=== PATIENT | male | born 1970 | race Two or more races ===

== ENCOUNTER 2018-03-27 10:25 | Emergency (ER) | payer MEDICAID ==
[~2018-03-27] VITALS: Ht 175.3 cm; Wt 99.8 kg
[~2018-03-27 10:25] MED LIST: ASPI81CH43 PO; ATOR20TA50 PO; CAR3125T PO; ENA2.5T PO; GLIP-115 PO; METF-371 PO
[2018-03-27] MEDS ORDERED: SODIUM CHLORIDE 0.9% 1,000 ML IV ONE (11:12)
[2018-03-27] MEDS ORDERED: InsuLIN REG 1unit/0.01ml Soln (100units/ml) IV ONE (11:15)
[2018-03-27] MEDS ORDERED: LORazepam 2MG/ML-1ML VIAL IV ONE (11:15)
[2018-03-27 11:39] LABS: Basophils # (auto) 0 uL; Basophils % (auto) 0.5 % (0.0-2.0); Eosinophils # (auto) 0.1 uL; Eosinophils % (auto) 0.7 % (0.0-7.0); Hematocrit 48.8 % (41.0-53.0); Hemoglobin 16.7 g/dL (13.5-17.5); Lymphocytes # (auto) 3.6 uL; Lymphocytes % (auto) 38.2 % (10.0-50.0); Mean Corpuscular Hgb Conc. 34.2 g/dL (32.0-36.0); Mean Corpuscular Volume 90.6 fL (80.0-100.0); Monocytes # (auto) 0.6 uL; Monocytes % (auto) 6.5 % (0.0-12.0); Neutrophils % (auto) 54.1 % (37.0-80.0); Nucleated Red Blood Cells % 0.1 %; Platelet Count (auto) 229 10^3/uL (140-450); Red Blood Cells 5.38 10^6/uL (4.5-5.90); Red Cell Distribution Width 12.6 % (11.8-14.3); White Blood Cell 9.3 10^3/uL (4.4-10.8)
[2018-03-27 11:48] LABS: Albumin 3.6 g/dL (3.4-5.0); Calcium 9.2 mg/dL (8.5-10.1); Potassium 4.3 mmol/L (3.5-5.1)
[2018-03-27 11:51] LABS: Bilirubin, Total 0.4 mg/dL (0.2-1.0); Total Protein 7.6 g/dL (6.4-8.2)
[2018-03-27 11:52] LABS: Urine Bacteria NONE SEEN /hpf (None Seen); Urine Blood Negative /uL (Negative); Urine Specific Gravity 1.033 (1.001-1.035); Urine WBC <1 /hpf (0 - 3)
[2018-03-27 12:15] LABS: BUN/Creatinine Ratio 18.4
[2018-03-27 12:49] VITALS: BP 119/85
== END 2018-03-27 13:00 | disposition home or self-care (01) ==
LOC: ER 10:25
DX: E11.65 Type 2 diabetes mellitus with hyperglycemia (principal); K40.90 Unilateral inguinal hernia, without obstruction or gangrene, not specified as recurrent; I10 Essential (primary) hypertension; M79.662 Pain in left lower leg; M79.661 Pain in right lower leg; F17.200 Nicotine dependence, unspecified, uncomplicated; F41.9 Anxiety disorder, unspecified; F32.9 Major depressive disorder, single episode, unspecified; Z79.82 Long term (current) use of aspirin; Z79.4 Long term (current) use of insulin
CPT/HCPCS: 36415; 74176; 80053; 81001; 85025; 96361; 96374; 99284; J1815; J7030

== ENCOUNTER 2018-04-04 11:18 | Emergency (ER) | payer MEDICAID ==
[~2018-04-04] VITALS: Ht 175.3 cm; Wt 101.6 kg
[2018-04-04 11:46] LABS: Urine WBC None Seen /hpf (0 - 3)
[2018-04-04 11:58] LABS: Basophils # (auto) 0.1 uL; Basophils % (auto) 0.6 % (0.0-2.0); Eosinophils # (auto) 0.1 uL; Eosinophils % (auto) 0.7 % (0.0-7.0); Hematocrit 48.9 % (41.0-53.0); Hemoglobin 16.9 g/dL (13.5-17.5); Lymphocytes # (auto) 2.3 uL; Lymphocytes % (auto) 28.8 % (10.0-50.0); Mean Corpuscular Hemoglobin 31.1 pg (28.0-32.0); Mean Corpuscular Hgb Conc. 34.6 g/dL (32.0-36.0); Mean Corpuscular Volume 89.9 fL (80.0-100.0); Monocytes # (auto) 0.5 uL; Monocytes % (auto) 5.7 % (0.0-12.0); Neutrophils # (auto) 5.2 uL; Neutrophils % (auto) 64.2 % (37.0-80.0); Nucleated Red Blood Cells % 0.2 %; Platelet Count (auto) 244 10^3/uL (140-450); Red Blood Cells 5.43 10^6/uL (4.5-5.90); Red Cell Distribution Width 12.9 % (11.8-14.3); White Blood Cell 8.1 10^3/uL (4.4-10.8)
[2018-04-04 12:09] LABS: Urine Bacteria NONE SEEN /hpf (None Seen); Urine Blood Negative /uL (Negative); Urine Specific Gravity 1.029 (1.001-1.035)
[2018-04-04 12:25] LABS: Alanine Aminotransferase 49 U/L (16-61); Albumin 3.7 g/dL (3.4-5.0); Anion Gap 10 (5-15); Aspartate Aminotransferase 18 U/L (15-37); BUN/Creatinine Ratio 14.8; Blood Urea Nitrogen 12 mg/dL (7-18); Calcium 8.7 mg/dL (8.5-10.1); Carbon Dioxide 22 mmol/L (21-32); Chloride 101 mmol/L (98-107); GFR African American 130 mL/min; GFR Non-African American 108 mL/min; Glucose 387 mg/dL (74-106); Potassium 4.1 mmol/L (3.5-5.1); Sodium 133 mmol/L (136-145)
[2018-04-04 12:30] LABS: Alkaline Phosphatase 141 U/L (45-117); Bilirubin, Total 0.6 mg/dL (0.2-1.0); Total Protein 7.7 g/dL (6.4-8.2)
[2018-04-04] MEDS ORDERED: ONDANSETRON ODT 4 MG TAB PO ONE (14:15)
[2018-04-04] MEDS ORDERED: InsuLIN REG 1unit/0.01ml Soln (100units/ml) SC ONE (15:15)
[2018-04-04 15:30] VITALS: BP 110/72
== END 2018-04-04 16:49 | disposition home or self-care (01) ==
LOC: ER 11:21
DX: E11.65 Type 2 diabetes mellitus with hyperglycemia (principal); R11.0 Nausea; I10 Essential (primary) hypertension; F17.210 Nicotine dependence, cigarettes, uncomplicated; Z79.82 Long term (current) use of aspirin; Z79.84 Long term (current) use of oral hypoglycemic drugs
CPT/HCPCS: 36415; 80053; 81001; 82962; 84484; 85025; 93005; 96372; 99284; J1815; Q0162

== ENCOUNTER 2020-05-19 18:32 | Inpatient (IN) | payer MEDICAID ==
[~2020-05-19] VITALS: Ht 175.3 cm; Wt 97.4 kg
[~2020-05-19 18:32] MED LIST changes: -ENA2.5T PO; +ENAL2.5T11 PO; -GLIP-115 PO; +GLIP5TAB12 PO
[2020-05-19] MEDS ORDERED: AZITHROMYCIN 500MG/ 250ML 250 ML IV ONE (19:00)
[2020-05-19] MEDS ORDERED: ONDANSETRON HCL 4 MG/2 ML VIAL IV ONE (19:00)
[2020-05-19] MEDS ORDERED: SODIUM CHLORIDE 0.9% 3,000 ML IV ONE (19:00)
[2020-05-19] MEDS ORDERED: ACETAMINOPHEN 325 MG TAB PO ONE (19:00)
[2020-05-19] MEDS ORDERED: CEFEPIME 2 GM in SODIUM CHL 0.9% 50 ML IV ONE (19:00)
[2020-05-19] MEDS ORDERED: MORPHINE SULFATE 4 MG/ML SYR/VIAL IV ONE (19:00)
[2020-05-19] MEDS ORDERED: SODIUM CHLORIDE 0.9% 1,000 ML IVB ONE (19:00)
[2020-05-19] MEDS ORDERED: IOHEXOL 300 MG/ML 100ML BOTTLE IJ ONE (21:18)
[2020-05-19 23:09] LABS: Basophils # (auto) 0 10 ^3/uL (0-0.2); Basophils % (auto) 0.2 % (0.0-2.0); Eosinophils # (auto) 0 10 ^3/uL (0-0.8); Hematocrit 46.7 % (41.0-53.0); Hemoglobin 16.3 g/dL (13.5-17.5); Lymphocytes # (auto) 1.2 10 ^3/uL (0.4-5.4); Lymphocytes % (auto) 20.5 % (10.0-50.0); Mean Corpuscular Hemoglobin 30.6 pg (28.0-32.0); Mean Corpuscular Hgb Conc. 34.8 g/dL (32.0-36.0); Monocytes # (auto) 0.4 10 ^3/uL (0-1.3); Monocytes % (auto) 6.5 % (0.0-12.0); Neutrophils # (auto) 4.3 10 ^3/uL (1.6-8.6); Neutrophils % (auto) 72.8 % (37.0-80.0); Red Blood Cells 5.31 10^6/uL (4.5-5.90); Red Cell Distribution Width 12.7 % (11.8-14.3)
[2020-05-19 23:24] LABS: Partial Thromboplastin Time 28.2 sec (23.0-31.2)
[2020-05-19 23:27] LABS: Albumin 2.7 g/dL (3.4-5.0); Magnesium 1.9 mg/dL (1.6-2.6); Potassium 3.3 mmol/L (3.5-5.1)
[2020-05-19 23:30] LABS: BUN/Creatinine Ratio 8.8; Bilirubin, Total 0.6 mg/dL (0.2-1.0); Total Protein 7.4 g/dL (6.4-8.2)
[2020-05-20 01:39] LABS: Urine Bacteria FEW /hpf (None Seen); Urine Blood Negative /uL (Negative); Urine Specific Gravity 1.031 (1.001-1.035); Urine WBC 1 /hpf (0 - 3)
[2020-05-20] MEDS ORDERED: ACETAMINOPHEN 325 MG TAB PO ONE (04:00)
[2020-05-20] MEDS ORDERED: ONDANSETRON HCL 4 MG/2 ML VIAL IV PRN (04:00)
[2020-05-20] MEDS ORDERED: REMDESIVIR PER PHARMACY 0 ML IV SCH ×2 (04:00→04:30)
[2020-05-20] MEDS ORDERED: DexAMETHasone SOD PHOS 10MG/1ML VIAL INJ IV SCH (04:00)
[2020-05-20] MEDS ORDERED: MORPHINE SULFATE INJECTION 2 MG/ML SYRG IV PRN (04:00)
[2020-05-20] MEDS: DexAMETHasone SOD PHOS 10MG/1ML VIAL INJ IV SCH (04:53)
[2020-05-20] MEDS: ACETAMINOPHEN 325 MG TAB PO PRN ×2 (04:53→23:48)
[2020-05-20] MEDS: MORPHINE SULFATE INJECTION 2 MG/ML SYRG IV PRN ×2 (04:56→23:47)
[2020-05-20] MEDS ORDERED: ZINC SULFATE 220mg CAP or TAB PO SCH (10:00)
[2020-05-20] MEDS ORDERED: ASCORBIC ACID 500 MG TAB PO SCH (10:00)
[2020-05-20] MEDS: ENOXAPARIN SOD 40 MG/0.4 ML SYRINGE SC SCH (10:00)
[2020-05-20] MEDS ORDERED: CHOLECALCIFEROL (VITD3) 2,000 UNIT CAP/TAB PO SCH (10:00)
[2020-05-20] MEDS: CHOLECALCIFEROL (VITD3) 2,000 UNIT CAP/TAB PO SCH (10:23)
[2020-05-20] MEDS: ZINC SULFATE 220mg CAP or TAB PO SCH (10:23)
[2020-05-20] MEDS: ASCORBIC ACID 500 MG TAB PO SCH (10:23)
[2020-05-20] MEDS ORDERED: POTASSIUM CHL 20 Meq TABLET PO ONE (12:30)
[2020-05-20] MEDS ORDERED: REMDESIVIR 200 MG in NS 210ml LOADING DOSE ADULT IV ONE (15:00)
[2020-05-20] MEDS ORDERED: DULO60CA PO (17:32)
[2020-05-20] MEDS ORDERED: HYDR-531 PO ×2 (17:40→17:45)
[2020-05-20] MEDS ORDERED: GABA100C9 PO (17:44)
[2020-05-20] MEDS ORDERED: DULO1CAP6 PO (17:45)
[2020-05-20] MEDS ORDERED: METF-371 PO (17:45)
[2020-05-20] MEDS ORDERED: GABA300C10 PO (17:46)
[2020-05-20] MEDS: FAMOTIDINE (10MG/ML) 2ML VL IV SCH (22:00)
[2020-05-20] MEDS: ONDANSETRON HCL 4 MG/2 ML VIAL IV PRN (23:47)
[2020-05-21 00:45] VITALS: BP 125/87
[2020-05-21] MEDS ORDERED: DEXTROSE (50%) 50ML SYRG IV PRN (02:30)
[2020-05-21] MEDS ORDERED: LORA1TAB23 PO (04:57)
[2020-05-21] MEDS: InsuLIN REG 1unit/0.01ml Soln (100units/ml) SC SCH ×4 (06:23→22:26)
[2020-05-21] MEDS: ACCU-CHEK COMFORT CURVE STRIP VI SCH ×4 (06:23→22:27)
[2020-05-21 06:44] LABS: Basophils # (auto) 0 10 ^3/uL (0-0.2); Basophils % (auto) 0.3 % (0.0-2.0); Eosinophils # (auto) 0 10 ^3/uL (0-0.8); Hematocrit 50.8 % (41.0-53.0); Hemoglobin 17.6 g/dL (13.5-17.5); Lymphocytes # (auto) 1.1 10 ^3/uL (0.4-5.4); Lymphocytes % (auto) 12.1 % (10.0-50.0); Mean Corpuscular Hemoglobin 31.2 pg (28.0-32.0); Mean Corpuscular Hgb Conc. 34.8 g/dL (32.0-36.0); Mean Corpuscular Volume 89.9 fL (80.0-100.0); Monocytes # (auto) 0.5 10 ^3/uL (0-1.3); Monocytes % (auto) 6.2 % (0.0-12.0); Neutrophils # (auto) 7.1 10 ^3/uL (1.6-8.6); Neutrophils % (auto) 81.4 % (37.0-80.0); Nucleated Red Blood Cells % 0.1 %; Red Blood Cells 5.65 10^6/uL (4.5-5.90); Red Cell Distribution Width 12.8 % (11.8-14.3); White Blood Cell 8.8 10^3/uL (4.4-10.8)
[2020-05-21 07:04] LABS: Potassium 4.4 mmol/L (3.5-5.1)
[2020-05-21 07:28] LABS: Albumin 2.4 g/dL (3.4-5.0); BUN/Creatinine Ratio 14.1; Bilirubin, Total 0.7 mg/dL (0.2-1.0); CRP High Sensitivity 15.3 mg/dL (< 0.3); Calcium 8.5 mg/dL (8.5-10.1); Magnesium 2.1 mg/dL (1.6-2.6); Total Protein 7.7 g/dL (6.4-8.2)
[2020-05-21 08:00] VITALS: BP 107/65
[2020-05-21] MEDS: ENOXAPARIN SOD 40 MG/0.4 ML SYRINGE SC SCH (09:42)
[2020-05-21] MEDS: ZINC SULFATE 220mg CAP or TAB PO SCH (09:42)
[2020-05-21] MEDS: ASCORBIC ACID 500 MG TAB PO SCH (09:42)
[2020-05-21] MEDS: CHOLECALCIFEROL (VITD3) 2,000 UNIT CAP/TAB PO SCH (09:43)
[2020-05-21] MEDS: ONDANSETRON HCL 4 MG/2 ML VIAL IV PRN (09:43)
[2020-05-21] MEDS: FAMOTIDINE (10MG/ML) 2ML VL IV SCH ×2 (09:43→22:25)
[2020-05-21] MEDS: DexAMETHasone SOD PHOS 10MG/1ML VIAL INJ IV SCH (09:43)
[2020-05-21] MEDS: MORPHINE SULFATE INJECTION 2 MG/ML SYRG IV PRN (09:44)
[2020-05-21] MEDS: REMDESIVIR 100mg 100 MG in SODIUM CHL 0.9% 230 ML IV SCH (15:11)
[2020-05-21 16:00] VITALS: BP 112/74
[2020-05-22] VITALS (7 sets, daily range): BP systolic 93–122; BP diastolic 63–82
[2020-05-22] MEDS: ONDANSETRON HCL 4 MG/2 ML VIAL IV PRN (04:52)
[2020-05-22] MEDS: MORPHINE SULFATE INJECTION 2 MG/ML SYRG IV PRN (04:53)
[2020-05-22 06:12] LABS: Basophils # (auto) 0 10 ^3/uL (0-0.2); Basophils % (auto) 0.2 % (0.0-2.0); Eosinophils # (auto) 0 10 ^3/uL (0-0.8); Hematocrit 45.6 % (41.0-53.0); Hemoglobin 15.8 g/dL (13.5-17.5); Lymphocytes # (auto) 1.1 10 ^3/uL (0.4-5.4); Lymphocytes % (auto) 13.5 % (10.0-50.0); Mean Corpuscular Hemoglobin 30.7 pg (28.0-32.0); Mean Corpuscular Hgb Conc. 34.5 g/dL (32.0-36.0); Mean Corpuscular Volume 88.8 fL (80.0-100.0); Monocytes # (auto) 0.7 10 ^3/uL (0-1.3); Monocytes % (auto) 8.3 % (0.0-12.0); Neutrophils # (auto) 6.3 10 ^3/uL (1.6-8.6); Red Blood Cells 5.14 10^6/uL (4.5-5.90); Red Cell Distribution Width 12.6 % (11.8-14.3); White Blood Cell 8.1 10^3/uL (4.4-10.8)
[2020-05-22 06:28] LABS: Calcium 8.2 mg/dL (8.5-10.1); Potassium 4.1 mmol/L (3.5-5.1)
[2020-05-22] MEDS: ACCU-CHEK COMFORT CURVE STRIP VI SCH ×4 (06:35→21:29)
[2020-05-22] MEDS: InsuLIN REG 1unit/0.01ml Soln (100units/ml) SC SCH ×4 (06:38→21:36)
[2020-05-22 06:42] LABS: Albumin 2.2 g/dL (3.4-5.0); BUN/Creatinine Ratio 25.4; Bilirubin, Total 0.6 mg/dL (0.2-1.0); CRP High Sensitivity 12.3 mg/dL (< 0.3)
[2020-05-22] MEDS: ZINC SULFATE 220mg CAP or TAB PO SCH (08:41)
[2020-05-22] MEDS: DexAMETHasone SOD PHOS 10MG/1ML VIAL INJ IV SCH (08:41)
[2020-05-22] MEDS: CHOLECALCIFEROL (VITD3) 2,000 UNIT CAP/TAB PO SCH (08:41)
[2020-05-22] MEDS: ASCORBIC ACID 500 MG TAB PO SCH (08:41)
[2020-05-22] MEDS: ENOXAPARIN SOD 40 MG/0.4 ML SYRINGE SC SCH (08:42)
[2020-05-22] MEDS: FAMOTIDINE (10MG/ML) 2ML VL IV SCH ×2 (10:12→21:35)
[2020-05-22] MEDS: REMDESIVIR 100mg 100 MG in SODIUM CHL 0.9% 230 ML IV SCH (15:40)
[2020-05-23] VITALS: BP 92/59
[2020-05-23] MEDS: ONDANSETRON HCL 4 MG/2 ML VIAL IV PRN ×2 (04:29→07:56)
[2020-05-23] MEDS: MORPHINE SULFATE INJECTION 2 MG/ML SYRG IV PRN ×2 (04:29→21:38)
[2020-05-23] MEDS: ACCU-CHEK COMFORT CURVE STRIP VI SCH ×4 (07:06→22:00)
[2020-05-23] MEDS: InsuLIN REG 1unit/0.01ml Soln (100units/ml) SC SCH ×4 (07:06→22:00)
[2020-05-23 07:24] LABS: Basophils # (auto) 0 10 ^3/uL (0-0.2); Basophils % (auto) 0.1 % (0.0-2.0); Eosinophils # (auto) 0 10 ^3/uL (0-0.8); Eosinophils % (auto) 0.1 % (0.0-7.0); Hematocrit 42.7 % (41.0-53.0); Hemoglobin 14.9 g/dL (13.5-17.5); Lymphocytes # (auto) 1.7 10 ^3/uL (0.4-5.4); Lymphocytes % (auto) 19.9 % (10.0-50.0); Mean Corpuscular Hemoglobin 30.7 pg (28.0-32.0); Mean Corpuscular Hgb Conc. 34.9 g/dL (32.0-36.0); Monocytes # (auto) 0.9 10 ^3/uL (0-1.3); Neutrophils # (auto) 5.7 10 ^3/uL (1.6-8.6); Neutrophils % (auto) 68.9 % (37.0-80.0); Nucleated Red Blood Cells % 0.1 %; Red Blood Cells 4.85 10^6/uL (4.5-5.90); Red Cell Distribution Width 12.3 % (11.8-14.3); White Blood Cell 8.3 10^3/uL (4.4-10.8)
[2020-05-23 08:00] VITALS: BP 109/70
[2020-05-23 08:10] LABS: Albumin 2.1 g/dL (3.4-5.0); Potassium 3.9 mmol/L (3.5-5.1)
[2020-05-23 08:24] LABS: BUN/Creatinine Ratio 34.5; Bilirubin, Total 0.7 mg/dL (0.2-1.0); CRP High Sensitivity 6.12 mg/dL (< 0.3); Total Protein 6.4 g/dL (6.4-8.2)
[2020-05-23] MEDS: FAMOTIDINE (10MG/ML) 2ML VL IV SCH ×2 (09:12→21:37)
[2020-05-23] MEDS: ASCORBIC ACID 500 MG TAB PO SCH (09:12)
[2020-05-23] MEDS: DexAMETHasone SOD PHOS 10MG/1ML VIAL INJ IV SCH (09:12)
[2020-05-23] MEDS: CHOLECALCIFEROL (VITD3) 2,000 UNIT CAP/TAB PO SCH (09:12)
[2020-05-23] MEDS: ZINC SULFATE 220mg CAP or TAB PO SCH (09:12)
[2020-05-23] MEDS: ENOXAPARIN SOD 40 MG/0.4 ML SYRINGE SC SCH (09:13)
[2020-05-23] MEDS: REMDESIVIR 100mg 100 MG in SODIUM CHL 0.9% 230 ML IV SCH (14:40)
[2020-05-23 16:00] VITALS: BP 97/59
[2020-05-23 23:52] VITALS: BP 93/67
[2020-05-24] MEDS: ONDANSETRON HCL 4 MG/2 ML VIAL IV PRN ×2 (03:33→21:57)
[2020-05-24] MEDS: InsuLIN REG 1unit/0.01ml Soln (100units/ml) SC SCH ×4 (06:20→20:39)
[2020-05-24] MEDS: ACCU-CHEK COMFORT CURVE STRIP VI SCH ×4 (06:36→22:14)
[2020-05-24 08:00] VITALS: BP 108/67
[2020-05-24 08:00] LABS: Basophils # (auto) 0 10 ^3/uL (0-0.2); Basophils % (auto) 0.1 % (0.0-2.0); Eosinophils # (auto) 0 10 ^3/uL (0-0.8); Eosinophils % (auto) 0.4 % (0.0-7.0); Hematocrit 43.7 % (41.0-53.0); Lymphocytes # (auto) 1.8 10 ^3/uL (0.4-5.4); Lymphocytes % (auto) 24.8 % (10.0-50.0); Mean Corpuscular Hemoglobin 30.4 pg (28.0-32.0); Mean Corpuscular Hgb Conc. 34.3 g/dL (32.0-36.0); Mean Corpuscular Volume 88.7 fL (80.0-100.0); Monocytes # (auto) 0.8 10 ^3/uL (0-1.3); Monocytes % (auto) 10.8 % (0.0-12.0); Neutrophils # (auto) 4.6 10 ^3/uL (1.6-8.6); Neutrophils % (auto) 63.9 % (37.0-80.0); Red Blood Cells 4.92 10^6/uL (4.5-5.90); Red Cell Distribution Width 12.5 % (11.8-14.3); White Blood Cell 7.2 10^3/uL (4.4-10.8)
[2020-05-24 08:39] LABS: Albumin 2.2 g/dL (3.4-5.0); Anion Gap 8 (5-15); Blood Urea Nitrogen 17 mg/dL (7-18); Calcium 8.3 mg/dL (8.5-10.1); Carbon Dioxide 24 mmol/L (21-32); Chloride 102 mmol/L (98-107); GFR African American 248 mL/min; GFR Non-African American 205 mL/min; Glucose 237 mg/dL (74-106); Sodium 134 mmol/L (136-145)
[2020-05-24 08:44] LABS: Alanine Aminotransferase 34 U/L (16-61); Alkaline Phosphatase 106 U/L (45-117); Aspartate Aminotransferase 21 U/L (15-37); Bilirubin, Total 0.8 mg/dL (0.2-1.0); Total Protein 6.4 g/dL (6.4-8.2)
[2020-05-24] MEDS ORDERED: INSULIN LANTUS (GLARGINE) 1 /0.01ml (100units/ml) SC SCH (09:15)
[2020-05-24] MEDS: ZINC SULFATE 220mg CAP or TAB PO SCH (10:02)
[2020-05-24] MEDS: FAMOTIDINE (10MG/ML) 2ML VL IV SCH ×2 (10:02→22:07)
[2020-05-24] MEDS: DexAMETHasone SOD PHOS 10MG/1ML VIAL INJ IV SCH (10:02)
[2020-05-24] MEDS: ENOXAPARIN SOD 40 MG/0.4 ML SYRINGE SC SCH (10:03)
[2020-05-24] MEDS: ASCORBIC ACID 500 MG TAB PO SCH (10:03)
[2020-05-24] MEDS: CHOLECALCIFEROL (VITD3) 2,000 UNIT CAP/TAB PO SCH (10:04)
[2020-05-24 12:06] LABS: Potassium 3.8 mmol/L (3.5-5.1)
[2020-05-24] MEDS: REMDESIVIR 100mg 100 MG in SODIUM CHL 0.9% 230 ML IV SCH (14:28)
[2020-05-24 16:00] VITALS: BP 118/62
[2020-05-24] MEDS: MORPHINE SULFATE INJECTION 2 MG/ML SYRG IV PRN (21:26)
[2020-05-24] MEDS: INSULIN LANTUS (GLARGINE) 1 /0.01ml (100units/ml) SC SCH (22:13)
[2020-05-25] VITALS: BP 101/65
[2020-05-25] MEDS: InsuLIN REG 1unit/0.01ml Soln (100units/ml) SC SCH ×4 (06:38→21:44)
[2020-05-25] MEDS: ACCU-CHEK COMFORT CURVE STRIP VI SCH ×4 (06:38→22:00)
[2020-05-25 07:07] LABS: Basophils # (auto) 0 10 ^3/uL (0-0.2); Basophils % (auto) 0.2 % (0.0-2.0); Eosinophils # (auto) 0.1 10 ^3/uL (0-0.8); Eosinophils % (auto) 0.9 % (0.0-7.0); Hematocrit 42.8 % (41.0-53.0); Hemoglobin 14.8 g/dL (13.5-17.5); Lymphocytes % (auto) 29.2 % (10.0-50.0); Mean Corpuscular Hemoglobin 30.6 pg (28.0-32.0); Mean Corpuscular Hgb Conc. 34.7 g/dL (32.0-36.0); Mean Corpuscular Volume 88.3 fL (80.0-100.0); Monocytes # (auto) 0.7 10 ^3/uL (0-1.3); Monocytes % (auto) 10.2 % (0.0-12.0); Neutrophils % (auto) 59.5 % (37.0-80.0); Nucleated Red Blood Cells % 0.1 %; Red Blood Cells 4.85 10^6/uL (4.5-5.90); Red Cell Distribution Width 12.2 % (11.8-14.3); White Blood Cell 6.7 10^3/uL (4.4-10.8)
[2020-05-25 07:34] LABS: Potassium 3.8 mmol/L (3.5-5.1)
[2020-05-25 07:49] LABS: BUN/Creatinine Ratio 32.7; CRP High Sensitivity 1.98 mg/dL (< 0.3)
[2020-05-25 08:00] VITALS: BP 125/82
[2020-05-25] MEDS: CHOLECALCIFEROL (VITD3) 2,000 UNIT CAP/TAB PO SCH (10:50)
[2020-05-25] MEDS: FAMOTIDINE (10MG/ML) 2ML VL IV SCH ×2 (10:50→22:46)
[2020-05-25] MEDS: ENOXAPARIN SOD 40 MG/0.4 ML SYRINGE SC SCH (10:50)
[2020-05-25] MEDS: ASCORBIC ACID 500 MG TAB PO SCH (10:50)
[2020-05-25] MEDS: DexAMETHasone SOD PHOS 10MG/1ML VIAL INJ IV SCH (10:50)
[2020-05-25] MEDS: ZINC SULFATE 220mg CAP or TAB PO SCH (10:51)
[2020-05-25] MEDS: INSULIN LANTUS (GLARGINE) 1 /0.01ml (100units/ml) SC SCH ×2 (11:50→21:45)
[2020-05-25 16:00] VITALS: BP 99/78
[2020-05-25] MEDS: ACETAMINOPHEN 325 MG TAB PO PRN (19:24)
[2020-05-26] VITALS: BP_SYST 100; BP_SYST 112; BP_DIAS 58; BP_DIAS 60
[2020-05-26] MEDS ORDERED: LORazepam 0.5 MG TAB PO PRN (01:45)
[2020-05-26] MEDS: InsuLIN REG 1unit/0.01ml Soln (100units/ml) SC SCH ×3 (06:11→18:14)
[2020-05-26] MEDS: ACCU-CHEK COMFORT CURVE STRIP VI SCH ×3 (06:13→18:14)
[2020-05-26 06:38] LABS: Basophils # (auto) 0 10 ^3/uL (0-0.2); Basophils % (auto) 0.2 % (0.0-2.0); Eosinophils # (auto) 0.1 10 ^3/uL (0-0.8); Eosinophils % (auto) 0.6 % (0.0-7.0); Hematocrit 43.8 % (41.0-53.0); Hemoglobin 15.2 g/dL (13.5-17.5); Lymphocytes # (auto) 1.9 10 ^3/uL (0.4-5.4); Lymphocytes % (auto) 17.7 % (10.0-50.0); Mean Corpuscular Hemoglobin 30.8 pg (28.0-32.0); Mean Corpuscular Hgb Conc. 34.8 g/dL (32.0-36.0); Mean Corpuscular Volume 88.4 fL (80.0-100.0); Monocytes # (auto) 0.7 10 ^3/uL (0-1.3); Monocytes % (auto) 6.7 % (0.0-12.0); Neutrophils # (auto) 8.1 10 ^3/uL (1.6-8.6); Neutrophils % (auto) 74.8 % (37.0-80.0); Red Blood Cells 4.95 10^6/uL (4.5-5.90); Red Cell Distribution Width 12.7 % (11.8-14.3); White Blood Cell 10.8 10^3/uL (4.4-10.8)
[2020-05-26 06:56] LABS: Potassium 3.8 mmol/L (3.5-5.1)
[2020-05-26 07:12] LABS: BUN/Creatinine Ratio 21.1; CRP High Sensitivity 2.32 mg/dL (< 0.3); Calcium 7.8 mg/dL (8.5-10.1)
[2020-05-26] MEDS: INSULIN LANTUS (GLARGINE) 1 /0.01ml (100units/ml) SC SCH (07:54)
[2020-05-26 08:00] VITALS: BP 111/73
[2020-05-26] MEDS: DexAMETHasone SOD PHOS 10MG/1ML VIAL INJ IV SCH (10:02)
[2020-05-26] MEDS: FAMOTIDINE (10MG/ML) 2ML VL IV SCH (10:06)
[2020-05-26] MEDS: CHOLECALCIFEROL (VITD3) 2,000 UNIT CAP/TAB PO SCH (10:06)
[2020-05-26] MEDS: ENOXAPARIN SOD 40 MG/0.4 ML SYRINGE SC SCH (10:06)
[2020-05-26] MEDS: ASCORBIC ACID 500 MG TAB PO SCH (10:06)
[2020-05-26] MEDS: ZINC SULFATE 220mg CAP or TAB PO SCH (10:06)
[2020-05-26 16:00] VITALS: BP 105/71
== END 2020-05-26 18:30 | disposition home or self-care (01) | DRG 137 ==
LOC: ER 18:32 → EDBD 18:32 → TELE 18:33 → TELE-WESTW 05-20 23:31
PROVIDERS: ADMIT Internal Medicine; ATTEND Internal Medicine
PROC: XW033E5 Introduction of Remdesivir Anti-infective into Peripheral Vein, Percutaneous Approach, New Technology Group 5 (ICD-10-PCS; principal; 2020-05-21)
DX: U07.1 COVID-19 (principal); J96.01 Acute respiratory failure with hypoxia; J12.82 Pneumonia due to coronavirus disease 2019; E87.3 Alkalosis; E87.1 Hypo-osmolality and hyponatremia; E87.6 Hypokalemia; E11.42 Type 2 diabetes mellitus with diabetic polyneuropathy; E66.01 Morbid (severe) obesity due to excess calories; E11.65 Type 2 diabetes mellitus with hyperglycemia; F32.9 Major depressive disorder, single episode, unspecified; Z79.899 Other long term (current) drug therapy; Z79.82 Long term (current) use of aspirin; Z79.84 Long term (current) use of oral hypoglycemic drugs; Z87.891 Personal history of nicotine dependence; Z68.37 Body mass index [BMI] 37.0-37.9, adult
CPT/HCPCS: 36415; 36600; 71045; 74177; 80048; 80053; 81001; 82270; 82728; 82805; 82962; 83036; 83605; 83615; 83690; 83735; 85025; 85379; 85610; 85730; 86141; 87040; 87426; 93005; 93970; 96361; 96365; 96375; G0378; J1100; J1815; J2405; J3490

== ENCOUNTER 2021-05-04 07:36 | Emergency (ER) | payer MEDICAID ==
[~2021-05-04] VITALS: Ht 175.3 cm; Wt 99.8 kg
[~2021-05-04 07:36] MED LIST changes: -ASPI81CH43 PO; -ATOR20TA50 PO; -CAR3125T PO; +DULO1CAP6 PO; -ENAL2.5T11 PO; +GABA300C10 PO; -GLIP5TAB12 PO; +HYDR-531 PO; +LORA1TAB23 PO
[2021-05-04 08:57] LABS: Basophils # (auto) 0.1 10 ^3/uL (0-0.2); Basophils % (auto) 0.6 % (0.0-2.0); Eosinophils # (auto) 0.1 10 ^3/uL (0-0.8); Eosinophils % (auto) 0.7 % (0.0-7.0); Hematocrit 47.5 % (41.0-53.0); Hemoglobin 15.9 g/dL (13.5-17.5); Lymphocytes # (auto) 2.1 10 ^3/uL (0.4-5.4); Lymphocytes % (auto) 24.9 % (10.0-50.0); Mean Corpuscular Hemoglobin 30.1 pg (28.0-32.0); Mean Corpuscular Hgb Conc. 33.5 g/dL (32.0-36.0); Mean Corpuscular Volume 89.9 fL (80.0-100.0); Monocytes # (auto) 0.5 10 ^3/uL (0-1.3); Monocytes % (auto) 5.8 % (0.0-12.0); Neutrophils # (auto) 5.8 10 ^3/uL (1.6-8.6); Red Blood Cells 5.28 10^6/uL (4.5-5.90); White Blood Cell 8.5 10^3/uL (4.4-10.8)
[2021-05-04] MEDS ORDERED: AZIT250T8 PO (09:08)
[2021-05-04 09:12] LABS: Albumin 3.4 g/dL (3.4-5.0); Calcium 8.7 mg/dL (8.5-10.1); Potassium 4.2 mmol/L (3.5-5.1)
[2021-05-04 09:15] LABS: BUN/Creatinine Ratio 24.1; Bilirubin, Total 1.4 mg/dL (0.2-1.0); Total Protein 7.2 g/dL (6.4-8.2)
[2021-05-04] MEDS ORDERED: InsuLIN REG 1unit/0.01ml Soln (100units/ml) IV ONE (10:00)
[2021-05-04] MEDS ORDERED: SODIUM CHLORIDE 0.9% 1,000 ML IV ONE (10:00)
[2021-05-04] MEDS ORDERED: KETOROLAC TROMETH 30 MG/ML 1ML VIAL IV ONE (10:30)
[2021-05-04 11:44] VITALS: BP 116/78
== END 2021-05-04 12:35 | disposition home or self-care (01) ==
LOC: ER 07:36
DX: J18.9 Pneumonia, unspecified organism (principal); E11.65 Type 2 diabetes mellitus with hyperglycemia
CPT/HCPCS: 36415; 71045; 80053; 82962; 83880; 85025; 93005; 96361; 96374; 96375; 99285; J1815; J1885; J7030

== ENCOUNTER 2021-06-16 02:51 | Emergency (ER) | payer MEDICAID ==
[~2021-06-16] VITALS: Ht 175.3 cm; Wt 99.8 kg
[~2021-06-16 02:51] MED LIST changes: +AZIT250T8 PO
[2021-06-16 04:29] LABS: Calcium 8.5 mg/dL (8.5-10.1)
[2021-06-16 04:37] LABS: Albumin 2.9 g/dL (3.4-5.0); BUN/Creatinine Ratio 16.2; Bilirubin, Total 2.2 mg/dL (0.2-1.0); Total Protein 6.5 g/dL (6.4-8.2)
[2021-06-16 05:55] VITALS: BP 122/95
== END 2021-06-16 06:31 | disposition home or self-care (01) ==
LOC: EDBD 02:51 → ER 02:51
DX: I42.9 Cardiomyopathy, unspecified (principal); F15.10 Other stimulant abuse, uncomplicated; F12.10 Cannabis abuse, uncomplicated; E11.9 Type 2 diabetes mellitus without complications; I10 Essential (primary) hypertension
CPT/HCPCS: 36415; 71045; 80053; 84484; 93005

== ENCOUNTER 2021-06-30 17:51 | Emergency (ER) | payer MEDICAID ==
[~2021-06-30] VITALS: Ht 175.3 cm; Wt 111.1 kg
[2021-06-30 18:04] VITALS: BP 147/92
[2021-06-30 20:32] LABS: Basophils # (auto) 0 10 ^3/uL (0-0.2); Basophils % (auto) 0.7 % (0.0-2.0); Eosinophils # (auto) 0.1 10 ^3/uL (0-0.8); Eosinophils % (auto) 1.5 % (0.0-7.0); Hematocrit 48.5 % (41.0-53.0); Lymphocytes # (auto) 2.2 10 ^3/uL (0.4-5.4); Lymphocytes % (auto) 36.2 % (10.0-50.0); Mean Corpuscular Hemoglobin 29.7 pg (28.0-32.0); Mean Corpuscular Volume 90.1 fL (80.0-100.0); Monocytes # (auto) 0.6 10 ^3/uL (0-1.3); Monocytes % (auto) 9.4 % (0.0-12.0); Neutrophils # (auto) 3.1 10 ^3/uL (1.6-8.6); Neutrophils % (auto) 52.2 % (37.0-80.0); Nucleated Red Blood Cells % 0.1 %; Red Blood Cells 5.38 10^6/uL (4.5-5.90); White Blood Cell 5.9 10^3/uL (4.4-10.8)
[2021-06-30 20:42] LABS: Albumin 3.3 g/dL (3.4-5.0); Calcium 8.7 mg/dL (8.5-10.1); Potassium 4.2 mmol/L (3.5-5.1)
[2021-06-30 20:52] LABS: BUN/Creatinine Ratio 18.9; Bilirubin, Total 1.8 mg/dL (0.2-1.0); Total Protein 7.2 g/dL (6.4-8.2)
[2021-06-30] MEDS ORDERED: FUROSEMIDE 20 MG TAB PO ONE (22:30)
== END 2021-07-01 00:18 | disposition home or self-care (01) ==
LOC: EDSEX 17:51 → EDBD 17:51 → ER 18:04
DX: I11.0 Hypertensive heart disease with heart failure (principal); I50.9 Heart failure, unspecified; E11.9 Type 2 diabetes mellitus without complications; F12.10 Cannabis abuse, uncomplicated; F15.10 Other stimulant abuse, uncomplicated; Z87.891 Personal history of nicotine dependence
CPT/HCPCS: 36415; 71045; 80053; 83880; 84484; 85025; 93005

== ENCOUNTER 2021-09-18 09:32 | Emergency (ER) | payer MEDICAID ==
[~2021-09-18] VITALS: Ht 175.3 cm; Wt 97.5 kg
[2021-09-18 09:58] VITALS: BP 129/95
[2021-09-18] MEDS ORDERED: TRAM-297 PO (11:24)
[2021-09-18] MEDS ORDERED: KETOROLAC TROMETH 60MG/2ML VIAL IM ONE (11:30)
== END 2021-09-18 11:47 | disposition home or self-care (01) ==
LOC: ER 09:32
DX: S20.211A Contusion of right front wall of thorax, initial encounter (principal); M48.02 Spinal stenosis, cervical region; M75.32 Calcific tendinitis of left shoulder; E11.9 Type 2 diabetes mellitus without complications; I10 Essential (primary) hypertension; F12.10 Cannabis abuse, uncomplicated; F15.10 Other stimulant abuse, uncomplicated; Z87.891 Personal history of nicotine dependence; W18.09XA Striking against other object with subsequent fall, initial encounter; Y93.01 Activity, walking, marching and hiking; Y92.89 Other specified places as the place of occurrence of the external cause; Y99.8 Other external cause status
CPT/HCPCS: 71101; 72125; 73030; 96372; 99284; J1885

== ENCOUNTER 2021-09-27 03:02 | Emergency (ER) | payer MEDICAID ==
[~2021-09-27] VITALS: Ht 175.3 cm; Wt 95.3 kg
[~2021-09-27 03:02] MED LIST changes: +TRAM-297 PO
[2021-09-27 04:39] LABS: Basophils # (auto) 0.1 10 ^3/uL (0-0.2); Basophils % (auto) 1.5 % (0.0-2.0); Eosinophils # (auto) 0.1 10 ^3/uL (0-0.8); Hematocrit 45.1 % (41.0-53.0); Hemoglobin 15.1 g/dL (13.5-17.5); Lymphocytes # (auto) 1.5 10 ^3/uL (0.4-5.4); Lymphocytes % (auto) 27.7 % (10.0-50.0); Mean Corpuscular Hemoglobin 29.7 pg (28.0-32.0); Mean Corpuscular Hgb Conc. 33.5 g/dL (32.0-36.0); Mean Corpuscular Volume 88.7 fL (80.0-100.0); Monocytes # (auto) 0.4 10 ^3/uL (0-1.3); Monocytes % (auto) 8.1 % (0.0-12.0); Neutrophils # (auto) 3.3 10 ^3/uL (1.6-8.6); Neutrophils % (auto) 61.7 % (37.0-80.0); Nucleated Red Blood Cells % 0.1 %; Red Blood Cells 5.09 10^6/uL (4.5-5.90); Red Cell Distribution Width 15.8 % (11.8-14.3); White Blood Cell 5.3 10^3/uL (4.4-10.8)
[2021-09-27 05:01] LABS: Calcium 8.3 mg/dL (8.5-10.1); Potassium 3.3 mmol/L (3.5-5.1)
[2021-09-27 05:04] LABS: Bilirubin, Total 2.2 mg/dL (0.2-1.0); Total Protein 7.2 g/dL (6.4-8.2)
[2021-09-27] MEDS ORDERED: POTASSIUM EFFERVESENT TAB 25 MEQ PO ONE (09:45)
[2021-09-27] MEDS ORDERED: InsuLIN REG 1unit/0.01ml Soln (100units/ml) SC ONE (09:45)
[2021-09-27 10:00] VITALS: BP 122/97
== END 2021-09-27 11:00 | disposition home or self-care (01) ==
LOC: ER 03:02
DX: M79.10 Myalgia, unspecified site (principal); E11.65 Type 2 diabetes mellitus with hyperglycemia; E87.6 Hypokalemia; I10 Essential (primary) hypertension; F17.210 Nicotine dependence, cigarettes, uncomplicated; F15.10 Other stimulant abuse, uncomplicated; Z59.00 Homelessness unspecified
CPT/HCPCS: 36415; 80053; 82962; 83605; 83880; 85025; 96372; 99283; J1815

== ENCOUNTER 2021-10-02 14:15 | Emergency (ER) | payer MEDICAID ==
[~2021-10-02] VITALS: Ht 175.3 cm; Wt 95.3 kg
[2021-10-02 15:08] VITALS: BP 106/58
[2021-10-02] MEDS ORDERED: ACET-1080 PO (15:30)
[2021-10-02] MEDS ORDERED: CEPH-509 PO (15:30)
[2021-10-02] MEDS ORDERED: cefTRIAXone SOD 1,000 MG VL IM ONE (15:30)
[2021-10-02] MEDS ORDERED: ACETAMINOPHEN 500 MG TAB PO ONE (15:30)
== END 2021-10-02 15:54 | disposition home or self-care (01) ==
LOC: ER 14:15
DX: L03.011 Cellulitis of right finger (principal); I10 Essential (primary) hypertension; E11.9 Type 2 diabetes mellitus without complications; Z87.891 Personal history of nicotine dependence; Z59.00 Homelessness unspecified; Z79.2 Long term (current) use of antibiotics; Z79.899 Other long term (current) drug therapy
CPT/HCPCS: 10060; 73120; 96372; 99283; J0696

== ENCOUNTER 2021-10-15 22:03 | Emergency (ER) | payer MEDICAID ==
[~2021-10-15] VITALS: Ht 172.7 cm; Wt 84.8 kg
[~2021-10-15 22:03] MED LIST changes: +ACET-1080 PO; +CEPH-509 PO
[2021-10-15 22:06] VITALS: BP 132/85
[2021-10-16] MEDS ORDERED: GABAPENTIN 300 MG CAP PO ONE (06:45)
[2021-10-16] MEDS ORDERED: KETOROLAC TROMETH 60MG/2ML VIAL IM ONE (06:45)
[2021-10-16] MEDS ORDERED: GABA-339 PO (07:21)
[2021-10-16] MEDS ORDERED: IBUP800T27 PO (07:21)
== END 2021-10-16 07:30 | disposition home or self-care (01) ==
LOC: ER 22:03 → EDBD 22:03 → ER 10-16 07:29
DX: M54.16 Radiculopathy, lumbar region (principal); G89.29 Other chronic pain; M54.50 Low back pain, unspecified; I10 Essential (primary) hypertension; E11.9 Type 2 diabetes mellitus without complications; Z87.891 Personal history of nicotine dependence; Z79.2 Long term (current) use of antibiotics; Z79.899 Other long term (current) drug therapy; Z79.1 Long term (current) use of non-steroidal anti-inflammatories (NSAID)
CPT/HCPCS: 93005; 96372; 99283; J1885

== ENCOUNTER 2022-02-24 09:34 | Inpatient (IN) | payer MEDICAID ==
[~2022-02-24] VITALS: Ht 175.3 cm; Wt 88.0 kg
[~2022-02-24 09:34] MED LIST changes: +GABA-339 PO; +IBUP800T27 PO
[2022-02-24 10:37] LABS: Basophils # (auto) 0 10 ^3/uL (0-0.2); Basophils % (auto) 0.5 % (0.0-2.0); Eosinophils # (auto) 0.1 10 ^3/uL (0-0.8); Eosinophils % (auto) 2.5 % (0.0-7.0); Hematocrit 49.5 % (41.0-53.0); Hemoglobin 16.4 g/dL (13.5-17.5); Lymphocytes # (auto) 1.7 10 ^3/uL (0.4-5.4); Lymphocytes % (auto) 29.8 % (10.0-50.0); Mean Corpuscular Hemoglobin 30.5 pg (28.0-32.0); Mean Corpuscular Hgb Conc. 33.1 g/dL (32.0-36.0); Mean Corpuscular Volume 92.1 fL (80.0-100.0); Monocytes # (auto) 0.4 10 ^3/uL (0-1.3); Monocytes % (auto) 7.4 % (0.0-12.0); Neutrophils # (auto) 3.3 10 ^3/uL (1.6-8.6); Neutrophils % (auto) 59.8 % (37.0-80.0); Nucleated Red Blood Cells % 0.2 %; Red Blood Cells 5.38 10^6/uL (4.5-5.90); Red Cell Distribution Width 12.8 % (11.8-14.3); White Blood Cell 5.6 10^3/uL (4.4-10.8)
[2022-02-24 10:58] LABS: Albumin 3.2 g/dL (3.4-5.0); BUN/Creatinine Ratio 19.5; Calcium 8.7 mg/dL (8.5-10.1); Potassium 4.2 mmol/L (3.5-5.1)
[2022-02-24 11:01] LABS: Total Protein 7.5 g/dL (6.4-8.2)
[2022-02-24] MEDS ORDERED: LACTATED RINGER'S 1,000 ML IV ONE (11:45)
[2022-02-24] MEDS ORDERED: HYDROcodone-ACET 5/325MG TAB PO ONE (11:45)
[2022-02-24] MEDS ORDERED: AZITHROMYCIN 250 MG TAB PO ONE (15:00)
[2022-02-24] MEDS ORDERED: AMOXICILLIN TRIHYDRATE 250 MG CAP PO ONE (15:00)
[2022-02-24] MEDS ORDERED: IOHEXOL 350 MG/ML 100ML IJ ONE (15:44)
[2022-02-24] MEDS ORDERED: levoFLOXacin 750MG 150 ML IV ONE (15:45)
[2022-02-24] MEDS ORDERED: InsuLIN REG 1unit/0.01ml Soln (100units/ml) IV ONE (16:00)
[2022-02-24] MEDS ORDERED: FUROSEMIDE 20 MG/2 ML VIAL IV ONE (16:00)
[2022-02-24] MEDS ORDERED: MORPHINE SULFATE INJ 2 MG/ml SYRG IV PRN ×2 (16:30)
[2022-02-24] MEDS ORDERED: cefTRIAXone 1GM/50ML D5W 50 ML IV ONE (16:30)
[2022-02-24] MEDS ORDERED: ACETAMINOPHEN 325 MG TAB PO PRN (16:30)
[2022-02-24] MEDS ORDERED: HYDROcodone-ACET 5/325MG TAB PO PRN (16:30)
[2022-02-24] MEDS ORDERED: NITROGLYCERIN 0.4 MG SL TAB SL PRN (16:30)
[2022-02-24] MEDS ORDERED: DEXTROSE (50%) 50ML SYRG IV PRN (16:45)
[2022-02-24] MEDS ORDERED: LORazepam 0.5 MG TAB PO PRN (16:45)
[2022-02-24 16:50] VITALS: BP 123/65
[2022-02-24] MEDS ORDERED: ALBUTEROL SULF 2.5 MG/0.5ML(0.5%) NEB SOLN NEB PRN (17:00)
[2022-02-24] MEDS ORDERED: SODIUM CHLORIDE 0.9% 1,000 ML IV ONE (17:00)
[2022-02-24] MEDS: ACCU-CHEK COMFORT CURVE STRIP VI SCH ×2 (17:00→23:23)
[2022-02-24] MEDS: DOXYCYCLINE 100MG/250ML 250 ML IV SCH (17:39)
[2022-02-24 17:42] LABS: Urine Bacteria NONE SEEN /hpf (None Seen); Urine Blood TRACE /uL (Negative); Urine Specific Gravity 1.029 (1.001-1.035); Urine WBC <1 /hpf (0 - 3)
[2022-02-24 17:53] LABS: Alcohol, Urine < 3.0 mg/dL (0-10); Amphetamine Screen, Urine POSITIVE (NEGATIVE); Barbiturate Scree,Urine NEGATIVE (NEGATIVE); Benzodiazephine Screen, Urine NEGATIVE (NEGATIVE); Cannabinoid Screen, Urine NEGATIVE (NEGATIVE); Cocaine Screen, Urine NEGATIVE (NEGATIVE); Opiate Scree,Urine NEGATIVE (NEGATIVE)
[2022-02-24 18:02] LABS: Phencyclidine Screen, Urine NEGATIVE (NEGATIVE)
[2022-02-24] MEDS: InsuLIN REG 1unit/0.01ml Soln (100units/ml) SC SCH ×2 (18:12→23:21)
[2022-02-24 21:34] LABS: Cholesterol 150 mg/dL (< 200); Triglycerides 94 mg/dL (< 150)
[2022-02-24 21:45] LABS: HDL Cholesterol 68 mg/dL (40-59); LDL Cholesterol 85 mg/dL (< 100)
[2022-02-24] MEDS: GABAPENTIN 300 MG CAP PO SCH (23:17)
[2022-02-24] MEDS: ATORVASTATIN 20 MG TAB PO SCH (23:17)
[2022-02-24] MEDS: INSULIN LANTUS (GLARGINE) 1 /0.01ml (100units/ml) SC SCH (23:20)
[2022-02-25] MEDS ORDERED: FUROSEMIDE 40 MG/4 ML VIAL IV ONE (01:45)
[2022-02-25 03:22] LABS: Basophils # (auto) 0 10 ^3/uL (0-0.2); Basophils % (auto) 0.5 % (0.0-2.0); Eosinophils # (auto) 0.1 10 ^3/uL (0-0.8); Hematocrit 51.3 % (41.0-53.0); Hemoglobin 17.5 g/dL (13.5-17.5); Lymphocytes # (auto) 1.5 10 ^3/uL (0.4-5.4); Lymphocytes % (auto) 14.6 % (10.0-50.0); Mean Corpuscular Hemoglobin 31.6 pg (28.0-32.0); Mean Corpuscular Hgb Conc. 34.2 g/dL (32.0-36.0); Mean Corpuscular Volume 92.6 fL (80.0-100.0); Monocytes # (auto) 0.5 10 ^3/uL (0-1.3); Monocytes % (auto) 5.1 % (0.0-12.0); Neutrophils # (auto) 7.9 10 ^3/uL (1.6-8.6); Neutrophils % (auto) 78.8 % (37.0-80.0); Red Blood Cells 5.54 10^6/uL (4.5-5.90); Red Cell Distribution Width 13.1 % (11.8-14.3)
[2022-02-25] MEDS: DOXYCYCLINE 100MG/250ML 250 ML IV SCH ×2 (05:43→16:15)
[2022-02-25] MEDS: InsuLIN REG 1unit/0.01ml Soln (100units/ml) SC SCH ×4 (06:52→23:01)
[2022-02-25] MEDS: ACCU-CHEK COMFORT CURVE STRIP VI SCH ×4 (06:53→22:59)
[2022-02-25 07:56] LABS: BUN/Creatinine Ratio 16.5; Bilirubin, Total 1.6 mg/dL (0.2-1.0); Calcium 8.2 mg/dL (8.5-10.1); Potassium 3.9 mmol/L (3.5-5.1)
[2022-02-25 07:57] LABS: Albumin 3.1 g/dL (3.4-5.0)
[2022-02-25] MEDS ORDERED: cefTRIAXone 1GM/50ML D5W 50 ML IV SCH (09:00)
[2022-02-25] MEDS ORDERED: levoFLOXacin 750MG 150 ML IV SCH (10:00)
[2022-02-25] MEDS ORDERED: LISINOPRIL 5 MG TAB PO ONE (10:15)
[2022-02-25] MEDS ORDERED: FUROSEMIDE 20 MG/2 ML VIAL IV ONE (10:15)
[2022-02-25] MEDS ORDERED: CARVEDILOL 3.125 MG TAB PO ONE (10:15)
[2022-02-25] MEDS ORDERED: DAPAGLIFLOZIN 5 MG TAB PO ONE (10:15)
[2022-02-25] MEDS: ASPirin 81 mg TAB PO SCH (10:35)
[2022-02-25] MEDS: GABAPENTIN 300 MG CAP PO SCH ×2 (10:37→22:57)
[2022-02-25] MEDS: ENOXAPARIN SOD 40 MG/0.4 ML SYRINGE SC SCH (10:43)
[2022-02-25 15:01] VITALS: BP 99/68
[2022-02-25 15:08] VITALS: BP 99/68
[2022-02-25 17:00] VITALS: BP 99/68
[2022-02-25] MEDS: FUROSEMIDE 20 MG/2 ML VIAL IV SCH (17:55)
[2022-02-25 22:00] VITALS: BP 111/84
[2022-02-25] MEDS: ATORVASTATIN 20 MG TAB PO SCH (22:57)
[2022-02-25] MEDS: CARVEDILOL 3.125 MG TAB PO SCH (22:57)
[2022-02-25] MEDS: INSULIN LANTUS (GLARGINE) 1 /0.01ml (100units/ml) SC SCH (23:01)
[2022-02-26] MEDS: DOXYCYCLINE 100MG/250ML 250 ML IV SCH (04:36)
[2022-02-26 05:00] VITALS: BP 105/69
[2022-02-26] MEDS: FUROSEMIDE 20 MG/2 ML VIAL IV SCH (06:59)
[2022-02-26] MEDS: ACCU-CHEK COMFORT CURVE STRIP VI SCH ×2 (06:59→12:32)
[2022-02-26] MEDS: InsuLIN REG 1unit/0.01ml Soln (100units/ml) SC SCH ×2 (07:02→12:32)
[2022-02-26 08:00] VITALS: BP 118/78
[2022-02-26 09:00] VITALS: BP 118/78
[2022-02-26] MEDS ORDERED: DAPAGLIFLOZIN 5 MG TAB PO SCH (10:00)
[2022-02-26] MEDS ORDERED: LISINOPRIL 5 MG TAB PO SCH (10:00)
[2022-02-26] MEDS: ASPirin 81 mg TAB PO SCH (10:43)
[2022-02-26] MEDS: CARVEDILOL 3.125 MG TAB PO SCH (10:45)
[2022-02-26] MEDS: GABAPENTIN 300 MG CAP PO SCH (10:46)
[2022-02-26] MEDS: ENOXAPARIN SOD 40 MG/0.4 ML SYRINGE SC SCH (10:47)
[2022-02-26] MEDS ORDERED: POTA8TAB15 PO (12:15)
[2022-02-26] MEDS ORDERED: DOXY-286 PO (12:15)
[2022-02-26] MEDS ORDERED: ATOR20TA50 PO (12:15)
[2022-02-26] MEDS ORDERED: ASPI-325 PO (12:15)
[2022-02-26] MEDS ORDERED: BUME2TAB5 PO (12:15)
[2022-02-26] MEDS ORDERED: LISI-275 PO (12:15)
[2022-02-26] MEDS ORDERED: CAR3125T PO (12:15)
[2022-02-26 12:36] VITALS: BP 118/78
[2022-02-26 13:00] VITALS: BP 115/72
== END 2022-02-26 13:50 | disposition home or self-care (01) | DRG 194 ==
LOC: ER 09:34 → TELE 16:29 → TELE-WESTW 02-25 14:56
PROVIDERS: ADMIT Registered Nurse; ATTEND Hospitalist
DX: I11.0 Hypertensive heart disease with heart failure (principal); I42.0 Dilated cardiomyopathy; I50.43 Acute on chronic combined systolic (congestive) and diastolic (congestive) heart failure; E78.5 Hyperlipidemia, unspecified; E11.65 Type 2 diabetes mellitus with hyperglycemia; I87.2 Venous insufficiency (chronic) (peripheral); E66.9 Obesity, unspecified; Z20.822 Contact with and (suspected) exposure to COVID-19; Z68.28 Body mass index [BMI] 28.0-28.9, adult; F15.10 Other stimulant abuse, uncomplicated; I45.10 Unspecified right bundle-branch block; Z79.4 Long term (current) use of insulin
CPT/HCPCS: 36415; 36600; 71045; 71260; 74177; 80053; 80061; 80307; 81001; 82010; 82805; 82962; 83036; 83605; 83735; 83880; 84443; 84484; 85025; 85379; 87040; 87426; 93005; 93306; 93925; 93970; 96360; 96361; G0378; G0463; J0696; J1815; J3490

== ENCOUNTER 2023-01-18 16:10 | Emergency (ER) | payer MEDICAID ==
[~2023-01-18] VITALS: Ht 175.3 cm; Wt 81.8 kg
[~2023-01-18 16:10] MED LIST changes: +ASPI-325 PO; +ATOR20TA50 PO; -AZIT250T8 PO; +BUME2TAB5 PO; +CAR3125T PO; -CEPH-509 PO; +DOXY-286 PO; -GABA300C10 PO; +IBUP-1456 PO; -IBUP800T27 PO; +LISI-275 PO; +LORA-1123 PO; -LORA1TAB23 PO; +POTA8TAB15 PO
[2023-01-18 17:05] LABS: Basophils # (auto) 0 10 ^3/uL (0-0.2); Basophils % (auto) 0.5 % (0.0-2.0); Eosinophils # (auto) 0.1 10 ^3/uL (0-0.8); Eosinophils % (auto) 0.8 % (0.0-7.0); Hematocrit 39.9 % (41.0-53.0); Hemoglobin 13.6 g/dL (13.5-17.5); Lymphocytes # (auto) 2.4 10 ^3/uL (0.4-5.4); Lymphocytes % (auto) 23.8 % (10.0-50.0); Mean Corpuscular Hemoglobin 31.1 pg (28.0-32.0); Mean Corpuscular Hgb Conc. 34.1 g/dL (32.0-36.0); Mean Corpuscular Volume 91.1 fL (80.0-100.0); Monocytes # (auto) 0.6 10 ^3/uL (0-1.3); Monocytes % (auto) 6.2 % (0.0-12.0); Neutrophils % (auto) 68.7 % (37.0-80.0); Red Blood Cells 4.37 10^6/uL (4.5-5.90); White Blood Cell 10.2 10^3/uL (4.4-10.8)
[2023-01-18 17:14] LABS: Alanine Aminotransferase 35 U/L (7-40); Alkaline Phosphatase 123 U/L (46-116); Anion Gap 6 (5-15); Aspartate Aminotransferase 19 U/L (13-40); BUN/Creatinine Ratio 25.9 (10.0-20.0); Bilirubin, Total 1.2 mg/dL (0.2-1.0); Blood Urea Nitrogen 22 mg/dL (9-23); Calcium 9.3 mg/dL (8.5-10.1); Carbon Dioxide 29 mmol/L (20-30); Chloride 100 mmol/L (98-107); Glucose 307 mg/dL (74-106); Potassium 4.2 mmol/L (3.5-5.1); Sodium 135 mmol/L (136-145); Total Protein 7.1 g/dL (5.7-8.2)
[2023-01-18] MEDS ORDERED: LORazepam 2MG/ML-1ML VIAL IV ONE (17:15)
[2023-01-18 18:00] VITALS: PULSE 132; RESP 19; O2SAT 92
[2023-01-18 18:55] LABS: Urine Bacteria NONE SEEN /hpf (None Seen); Urine Blood Negative /uL (Negative); Urine Clarity Clear (Clear); Urine Color Yellow (Yellow); Urine Hyaline Cast FEW /lpf (0 - 2); Urine Protein, UAD Negative (Negative); Urine Specific Gravity 1.027 (1.001-1.035); Urine Urobilinogen Normal (Negative); Urine WBC 1 /hpf (0 - 3); Urine pH 5.5 (5.0-8.0)
[2023-01-18] MEDS ORDERED: LACTATED RINGER'S 2,000 ML IV ONE (19:15)
[2023-01-18] MEDS ORDERED: MIDAZOLAM HCL 5 MG/ML-1ML VIAL IV ONE (19:15)
[2023-01-18 19:30] VITALS: PULSE 130; RESP 20; TEMP 99.1; O2SAT 97
[2023-01-18] MEDS ORDERED: KETOROLAC TROMETH 30 MG/ML 1ML VIAL IV ONE (19:45)
[2023-01-19] VITALS: BP 116/70; PULSE 99; RESP 14; O2SAT 95
== END 2023-01-19 00:44 | disposition home or self-care (01) ==
LOC: ER 16:10 → EDBD 16:10 → ER 01-19 00:42
DX: R53.1 Weakness (principal); E87.1 Hypo-osmolality and hyponatremia; E86.0 Dehydration; F15.10 Other stimulant abuse, uncomplicated; R79.89 Other specified abnormal findings of blood chemistry; R07.89 Other chest pain; E11.65 Type 2 diabetes mellitus with hyperglycemia; I11.0 Hypertensive heart disease with heart failure; I50.9 Heart failure, unspecified; Z87.891 Personal history of nicotine dependence
CPT/HCPCS: 36415; 71045; 80053; 81001; 83735; 83880; 84484; 85025; 93005; 99285; J1885; J2060; J2250

== ENCOUNTER 2023-03-14 07:41 | Emergency (ER) | payer MEDICAID ==
[~2023-03-14] VITALS: Ht 175.3 cm; Wt 89.0 kg
[2023-03-14 07:58] LABS: Basophils # (auto) 0.1 10 ^3/uL (0-0.2); Basophils % (auto) 0.7 % (0.0-2.0); Eosinophils # (auto) 0.2 10 ^3/uL (0-0.8); Eosinophils % (auto) 1.8 % (0.0-7.0); Hematocrit 41.5 % (41.0-53.0); Hemoglobin 14.3 g/dL (13.5-17.5); Lymphocytes # (auto) 2.3 10 ^3/uL (0.4-5.4); Mean Corpuscular Hemoglobin 31.4 pg (28.0-32.0); Mean Corpuscular Hgb Conc. 34.4 g/dL (32.0-36.0); Mean Corpuscular Volume 91.2 fL (80.0-100.0); Monocytes # (auto) 0.6 10 ^3/uL (0-1.3); Monocytes % (auto) 6.4 % (0.0-12.0); Neutrophils # (auto) 6.2 10 ^3/uL (1.6-8.6); Neutrophils % (auto) 66.1 % (37.0-80.0); Red Blood Cells 4.55 10^6/uL (4.5-5.90); Red Cell Distribution Width 13.3 % (11.8-14.3); White Blood Cell 9.4 10^3/uL (4.4-10.8)
[2023-03-14 08:15] LABS: Alanine Aminotransferase 34 U/L (7-40); Albumin 4.4 g/dL (3.2-4.8); Alkaline Phosphatase 167 U/L (46-116); Anion Gap 6 (5-15); Aspartate Aminotransferase 23 U/L (13-40); BUN/Creatinine Ratio 31.8 (10.0-20.0); Bilirubin, Total 1.1 mg/dL (0.2-1.0); Blood Urea Nitrogen 28 mg/dL (9-23); Calcium 9.1 mg/dL (8.5-10.1); Carbon Dioxide 33 mmol/L (20-30); Chloride 97 mmol/L (98-107); Potassium 4.1 mmol/L (3.5-5.1); Sodium 136 mmol/L (136-145); Total Protein 7.2 g/dL (5.7-8.2)
[2023-03-14 08:22] LABS: Glucose 403 mg/dL (74-106)
[2023-03-14 08:26] LABS: INR 0.97 (0.9-1.15); Partial Thromboplastin Time 25.9 SEC (24.5-34.5); Prothrombin Time 10.2 sec (9.3-11.8)
[2023-03-14] MEDS ORDERED: SODIUM CHLORIDE 0.9% 1,000 ML IV ONE (08:30)
[2023-03-14] MEDS ORDERED: InsuLIN REG 1unit/0.01ml Soln (100units/ml) IV ONE (08:30)
[2023-03-14 09:11] VITALS: BP 102/59; TEMP 98.4
[2023-03-14 09:14] VITALS: PULSE 68; RESP 19; O2SAT 95
[2023-03-14] MEDS ORDERED: FUROSEMIDE 20 MG/2 ML VIAL IV ONE (09:15)
== END 2023-03-14 10:27 | disposition left against medical advice (07) ==
LOC: ER 07:41
DX: I11.0 Hypertensive heart disease with heart failure (principal); I50.9 Heart failure, unspecified; E11.65 Type 2 diabetes mellitus with hyperglycemia; Z79.899 Other long term (current) drug therapy; Z53.29 Procedure and treatment not carried out because of patient's decision for other reasons
CPT/HCPCS: 36415; 71045; 74176; 80053; 83880; 84484; 85025; 85610; 85730; 93005; 96361; 96374; 96375; 99285; J1815; J1940; J7030